=== PATIENT | female | born 1960 | race African-American/Black ===

== ENCOUNTER 2020-02-08 22:09 | Inpatient (IN) | payer SELFPAY ==
[~2020-02-08] VITALS: Ht 157.5 cm; Wt 68.0 kg
[2020-02-08] MEDS ORDERED: ASPIRIN 81 MG CHEW TAB PO ONE (22:30)
[2020-02-08] MEDS ORDERED: FAMOTIDINE 20 MG/2 ML VIAL IV ONE ×2 (22:30→22:40)
[2020-02-08] MEDS ORDERED: SODIUM CHLORIDE FLUSH 10 ML SYR INJ PRN (22:30)
[2020-02-08] MEDS ORDERED: ASPIRIN 325 MG TAB ONE (22:40)
[2020-02-08] MEDS: FAMOTIDINE 20 MG TAB PO SCH (23:05)
[2020-02-08 23:18] LABS: BASOPHILS % 0.5 % (0.0-1.0); EOSINOPHILS % 0.8 % (0.0-6.0); HEMATOCRIT 45.3 % (34.2-44.1); HEMOGLOBIN 14.6 g/dL (12.0-16.0); LYMPHOCYTES # (AUTO) 1.1 (1.0-3.2); LYMPHOCYTES % 28.5 % (18.0-39.1); MEAN CORPUSCULAR HEMOGLOBIN 25.1 pg (28-32); MEAN CORPUSCULAR HGB CONC 32.2 g/dL (31-35); MEAN CORPUSCULAR VOLUME 77.8 fL (81-99); MONOCYTES # (AUTO) 0.6 (0.2-0.8); NEUTROPHILS # (AUTO) 2.1 (2.1-6.9); NEUTROPHILS % 54.9 % (38.7-80.0); PLATELET COUNT 228 x10e3/uL (140-360); RED BLOOD COUNT 5.82 x10e6/uL (3.6-5.1)
[2020-02-08] MEDS: METOPROLOL TARTRATE 25 MG TAB PO SCH (23:22)
[2020-02-08] MEDS ORDERED: AMLODIPINE BESYL5 MG PO (23:27)
[2020-02-08] MEDS ORDERED: HYDROCHLOROTHIA25 MG PO (23:27)
[2020-02-08] MEDS ORDERED: WELLBUTRIN SR150 MG PO (23:27)
[2020-02-08 23:36] LABS: CREATINE KINASE MB 2.2 ng/mL (0-5.0)
[2020-02-09] VITALS (9 sets, daily range): BP systolic 104–120; BP diastolic 62–74
[2020-02-09] MEDS ORDERED: INFLUENZA VIRUS VAC SPLIT INJ 0.5 ML SYR IM SCH (00:46)
[2020-02-09 07:15] LABS: CREATINE KINASE 279 IU/L (29-168)
[2020-02-09 07:56] LABS: CHOL/HDL RATIO 3.5 (3.0-3.6)
[2020-02-09] MEDS: ASPIRIN 325 MG TAB EC PO SCH (08:43)
[2020-02-09] MEDS ORDERED: ADDERALL 30 MG30 MG PO (08:45)
[2020-02-09] MEDS: VALSARTAN 160 MG TAB PO SCH (08:52)
[2020-02-09] MEDS ORDERED: NAMENDA10 MG PO (08:52)
[2020-02-09] MEDS: METOPROLOL TARTRATE 25 MG TAB PO SCH ×2 (08:54→21:43)
[2020-02-09] MEDS: FAMOTIDINE 20 MG TAB PO SCH ×2 (08:54→21:43)
[2020-02-09 10:49] LABS: % IRON SATURATION 17 % (15-50); IRON 57 ug/dL (50-170); TOTAL IRON BINDING CAPACITY 335 ug/dL (261-478); TRANSFERRIN 239 mg/dL (180-382)
[2020-02-09 15:48] LABS: CREATINE KINASE 244 IU/L (29-168)
[2020-02-09] MEDS: ENOXAPARIN SOD INJ 40 MG/0.4 ML SYR SC SCH (16:56)
[2020-02-09] MEDS ORDERED: LORAZEPAM 0.5 MG TAB PO PRN (20:00)
[2020-02-09] MEDS ORDERED: MORPHINE SULFATE 2 MG/ML SYR 1ML IV PRN (20:00)
[2020-02-09] MEDS: SIMVASTATIN 40 MG TAB PO SCH (21:43)
[2020-02-10] VITALS (8 sets, daily range): BP systolic 90–130; BP diastolic 70–78
[2020-02-10] MEDS ORDERED: REGADENOSON 0.4 MG/5 ML SYR IV ONE (10:49)
[2020-02-10] MEDS: ASPIRIN 325 MG TAB EC PO SCH (15:40)
[2020-02-10] MEDS: METOPROLOL TARTRATE 25 MG TAB PO SCH ×2 (15:40→20:52)
[2020-02-10] MEDS: FAMOTIDINE 20 MG TAB PO SCH ×2 (15:40→23:48)
[2020-02-10] MEDS: VALSARTAN 160 MG TAB PO SCH (15:40)
[2020-02-10] MEDS: ENOXAPARIN SOD INJ 40 MG/0.4 ML SYR SC SCH (16:32)
[2020-02-10] MEDS: SIMVASTATIN 40 MG TAB PO SCH (21:05)
[2020-02-11 01:30] VITALS: BP 103/61
[2020-02-11 05:22] VITALS: BP 103/67
[2020-02-11 08:44] VITALS: BP 105/89
[2020-02-11 09:08] VITALS: BP 105/89
== END 2020-02-11 09:15 | disposition home or self-care (01) | DRG 313 ==
LOC: FSED 22:30 → ERHOLD 22:33 → MED/SURG 02-09 00:13 → OBSVTOIN 02-10 08:29 → MED/SURG3 02-10 16:59
PROVIDERS: ADMIT Internal Medicine; ATTEND Internal Medicine
DX: R07.89 Other chest pain (principal); I10 Essential (primary) hypertension; F43.9 Reaction to severe stress, unspecified; F41.9 Anxiety disorder, unspecified; Z82.49 Family history of ischemic heart disease and other diseases of the circulatory system; Z83.3 Family history of diabetes mellitus; Z80.1 Family history of malignant neoplasm of trachea, bronchus and lung; E78.5 Hyperlipidemia, unspecified; Z20.828 Contact with and (suspected) exposure to other viral communicable diseases
CPT/HCPCS: 36415; 71046; 72050; 76705; 78452; 80053; 80061; 82550; 82553; 83540; 84466; 84484; 85025; 85379; 93005; 93017; 93306; 99284; A9502; G0378; J1650; U0002